=== PATIENT | male | born 1990 | race American Indian/Alaskan Native ===

== ENCOUNTER 2017-02-05 10:57 | Emergency (ER) | payer MEDICAID, OTHER ==
--- NOTE | 2017-02-05 11:46 | C.PDOC ---
History Of Present Illness 27 y/o male presents to the ED complaining that he "can't breathe" and he is having some chest pain due to the fact that he can't take a deep breath. He reports seen at [facility] yesterday but states they did not give him any breathing treatments and they sent him home. Patient states he has no medication at home and his breathing has not improved. Denies any fever, chills, or other complaints. Time Seen by Provider: 02/05/17 11:38 Chief Complaint (Nursing): Chest Pain History Per: Patient History/Exam Limitations: no limitations Onset/Duration Of Symptoms: Days, Gradual, Persistent Current Symptoms Are (Timing): Still Present Quality: Sharp Recent travel outside of the [place]: No Past Medical History Reviewed: Historical Data, Nursing Documentation, Vital Signs Vital Signs: Last Vital Signs Temp 98 F 02/05/17 13:29 Pulse 85 02/05/17 13:29 Resp 20 02/05/17 13:29 BP 135/56 L 02/05/17 13:29 Pulse Ox 100 02/05/17 13:29 - Medical History PMH: Asthma Surgical History: No Surg Hx Family History: States: No Known Family Hx - Social History Hx Tobacco Use: Yes (some days) Hx Alcohol Use: No Hx Substance Use: No - Immunization History Hx Influenza Vaccination: No Review Of Systems Except As Marked, All Systems Reviewed And Found Negative. Constitutional: Negative for: Fever, Chills Cardiovascular: Positive for: Chest Pain Respiratory: Positive for: Shortness of Breath Physical Exam - Physical Exam Appears: Non-toxic, No Acute Distress, Other (talking on cell phone, speaking in full sentences without difficulty) Skin: Normal Color, Warm, Dry, No Rash Head: Atraumatic, Normacephalic Eye(s): bilateral: Normal Inspection, PERRL Oral Mucosa: Moist Throat: Normal Neck: Normal ROM, Supple Chest: Symmetrical Cardiovascular: Rhythm Regular Respiratory: No Rales, No Rhonchi, Wheezing (expiratory) Gastrointestinal/Abdominal: Normal Exam, Soft, No Tenderness Extremity: Normal ROM, No Swelling Neurological/Psych: Oriented x3, Normal Speech, Normal Cognition ED Course And Treatment O2 Sat by Pulse Oximetry: 99 (ra) Pulse Ox Interpretation: Normal Progress Note: Patient was treated with Duonebs and Prednisone PO. On re- evaluation lungs clear, feeling better, in no distress Reassessment Condition: Improved Disposition Counseled Patient/Family Regarding: Studies Performed, Diagnosis, Need For Followup, Rx Given - Disposition Referrals: [facility] [Outside] [facility] [Outside] Disposition: HOME/ ROUTINE Disposition Time: 13:00 Condition: GOOD Additional Instructions: Follow up with your PMD or clinic for further evaluation Prescriptions: Albuterol HFA [Ventolin HFA 90 mcg/actuation (8 g)] 2 puff IH [id number] PRN #1 units PRN Reason: Cough predniSONE [Prednisone] 60 mg PO DAILY #3 tab Instructions: Asthma (ED), Wheezing (ED) - POA Present On Arrival: None - Clinical Impression Clinical Impression: Asthma - PA / [employer] / Resident Statement MD/DO has reviewed & agrees with the documentation as recorded. - Scribe Statement The provider has reviewed the documentation as recorded by the Scribe (Lara Tolentino) All medical record entries made by the Scribe were at my direction and personally dictated by me. I have reviewed the chart and agree that the record accurately reflects my personal performance of the history, physical exam, medical decision making, and the department course for this patient. I have also personally directed, reviewed, and agree with the discharge instructions and disposition.
[2017-02-05] MEDS ORDERED: Albuterol-Ipratrop 3 mg / 0.5 (3 ml) UD ONE (12:16)
[2017-02-05] MEDS: Albuterol-Ipratrop 3 mg / 0.5 (3 ml) UD IH SCH ×2 (12:31→12:32)
[2017-02-05 13:30] VITALS: BP 135/56; PULSE 85; RESP 20; TEMP 98
[2017-02-05 17:50] VITALS: O2SAT 99
--- NOTE | 2017-02-14 08:39 | CARD ---
APPROVED REPORT EKG Measurement Heart [id number] <Conclusion> Normal sinus rhythm Normal ECG
== END 2017-02-05 13:44 | disposition home or self-care (01) ==
LOC: C.ER 10:57
DX: J45.909 Unspecified asthma, uncomplicated (principal); Z72.0 Tobacco use

== ENCOUNTER 2018-03-17 17:43 | Emergency (ER) | payer MEDICAID, OTHER ==
[2018-03-17 18:13] VITALS: BP 130/85; PULSE 58; RESP 20; TEMP 98.2; O2SAT 99
[2018-03-17] MEDS ORDERED: cefTRIAXone 250 MG, Lidocaine Hydrochloride 1% 1 ML IM STA (18:49)
[2018-03-17 18:59] LABS: SQUAMOUS EPITHIAL < 1 /hpf (0-5); URINE BACTERIA FEW (<OCC); URINE BILIRUBIN NEGATIVE (NEGATIVE); URINE BLOOD 1+ (NEGATIVE); URINE CLARITY Clear (Clear); URINE COLOR Yellow (YELLOW); URINE GLUCOSE (UA) NORMAL (Normal); URINE LEUKOCYTE ESTERASE TRACE Leu/uL (Negative); URINE PROTEIN NEGATIVE (NEGATIVE)
[2018-03-17] MEDS ORDERED: cefTRIAXone 250 MG, Water For Injection 1 ML IM STA (18:59)
--- NOTE | 2018-03-17 19:16 | C.PDOC ---
History Of Present Illness 28 y/o male presents to the ER for evaluation of dysuria and yellow penile discharge which has been present since yesterday. Patient states that he developed the symptoms after he had unprotected sex with a new partner. Patient denies having fever and other complaints at this time. Time Seen by Provider: 03/17/18 18:26 Chief Complaint (Nursing): Male Genitourinary History Per: Patient History/Exam Limitations: no limitations Onset/Duration Of Symptoms: Days Current Symptoms Are (Timing): Still Present Severity: Moderate Past Medical History Reviewed: Historical Data, Nursing Documentation, Vital Signs Vital Signs: Last Vital Signs Temp 98.2 F 03/17/18 18:09 Pulse 58 L 03/17/18 18:09 Resp 20 03/17/18 18:09 BP 130/85 03/17/18 18:09 Pulse Ox 99 03/17/18 21:45 - Medical History PMH: Asthma Surgical History: No Surg Hx Family History: States: No Known Family Hx - Social History Hx Tobacco Use: Yes (some days) Hx Alcohol Use: Yes Hx Substance Use: No - Immunization History Hx Tetanus Toxoid Vaccination: No Hx Influenza Vaccination: No Hx Pneumococcal Vaccination: No Review Of Systems Except As Marked, All Systems Reviewed And Found Negative. Constitutional: Negative for: Fever, Chills Genitourinary: Positive for: Dysuria, Penile Discharge Physical Exam - Physical Exam Appears: Non-toxic, No Acute Distress Skin: Normal Color, Warm, Dry Head: Atraumatic, Normacephalic Eye(s): bilateral: Normal Inspection Nose: Normal Oral Mucosa: Moist Neck: Supple Chest: Symmetrical Cardiovascular: Rhythm Regular Respiratory: Normal Breath Sounds, No Rales, No Rhonchi, No Wheezing Gastrointestinal/Abdominal: Normal Exam, Soft, No Tenderness Extremity: Normal ROM Neurological/Psych: Oriented x3, Normal Speech ED Course And Treatment O2 Sat by Pulse Oximetry: 99 (RA) Pulse Ox Interpretation: Normal Progress Note: Chlymadia/ GC RNA and UA ordered. Patient treated with Rocephin and Zithromax PO. Patient has been discharged and instructed to follow up with PMD in 1-2 days. Disposition - Disposition Disposition: HOME/ ROUTINE Disposition Time: 19:13 Condition: STABLE Additional Instructions: Follow up with PMD within 1-2 days. Return to ED if feel worse. Prescriptions: metroNIDAZOLE [Flagyl] 2,000 mg PO ONCE #4 tab Instructions: Sexually-Transmitted Diseases (DC) Forms: [employer] (Polish) - Clinical Impression Clinical Impression: Urethritis - PA / [employer] / Resident Statement MD/DO has reviewed & agrees with the documentation as recorded. - Scribe Statement The provider has reviewed the documentation as recorded by the Scribe Tara Mg Provider Attestation All medical record entries made by the Scribe were at my direction and personally dictated by me. I have reviewed the chart and agree that the record accurately reflects my personal performance of the history, physical exam, medical decision making, and the department course for this patient. I have also personally directed, reviewed, and agree with the discharge instructions and disposition.
== END 2018-03-17 19:20 | disposition home or self-care (01) ==
LOC: C.ER 17:43
DX: N34.2 Other urethritis (principal)
CPT/HCPCS: 81001; 87491; 87591; 96372; 99284; J0696